=== PATIENT | female | born 1995 | race Asian ===

== ENCOUNTER 2017-01-31 08:08 | Emergency (ER) | payer BC, OTHER ==
[~2017-01-31] VITALS: Ht 162.6 cm; Wt 54.4 kg
[2017-01-31 08:18] VITALS: BP 118/74
[2017-01-31 09:13] LABS: UA SPECIFIC GRAVITY <=1.005 (1.005-1.035); microscopic required? YES; urine erythrocyte 3+ (NEGATIVE)
== END 2017-01-31 09:14 | disposition home or self-care (01) ==
LOC: ED 08:08
PROVIDERS: Emergency Medicine
DX: N39.0 Urinary tract infection, site not specified (principal)

== ENCOUNTER 2017-02-09 05:50 | Emergency (ER) | payer BC, OTHER ==
[2017-02-09 07:25] LABS: UA SPECIFIC GRAVITY <=1.005 (1.005-1.035); microscopic required? YES; urine erythrocyte 3+ (NEGATIVE)
[2017-02-09 07:35] VITALS: BP 109/76
== END 2017-02-09 07:35 | disposition home or self-care (01) ==
LOC: ED 05:50
PROVIDERS: Emergency Medicine
DX: N39.0 Urinary tract infection, site not specified (principal)
CPT/HCPCS: J0696

== ENCOUNTER 2018-08-22 17:24 | Emergency (ER) | payer OTHER ==
[~2018-08-22] VITALS: Ht 162.6 cm; Wt 53.1 kg
[2018-08-22 17:50] VITALS: Ht 162.6 cm; Wt 53.1 kg
[2018-08-22 19:42] VITALS: BP 108/56
== END 2018-08-22 19:42 | disposition home or self-care (01) ==
LOC: ED 17:24
DX: T39.1X5A Adverse effect of 4-Aminophenol derivatives, initial encounter (principal); J45.909 Unspecified asthma, uncomplicated; Y92.89 Other specified places as the place of occurrence of the external cause
CPT/HCPCS: J1885; Q0162

== ENCOUNTER 2018-08-24 20:23 | Emergency (ER) | payer OTHER ==
[~2018-08-24] VITALS: Ht 162.6 cm; Wt 54.0 kg
[2018-08-24 20:35] VITALS: Ht 162.6 cm; Wt 54.0 kg
[2018-08-24 21:22] VITALS: BP 134/96
== END 2018-08-24 21:22 | disposition home or self-care (01) ==
LOC: ED 20:23
DX: K05.30 Chronic periodontitis, unspecified (principal); J45.909 Unspecified asthma, uncomplicated
CPT/HCPCS: J1885; J2930; J3490

== ENCOUNTER 2018-12-21 07:04 | Emergency (ER) | payer OTHER ==
[~2018-12-21] VITALS: Ht 162.6 cm; Wt 55.5 kg
[2018-12-21 07:13] VITALS: Ht 162.6 cm; Wt 55.5 kg
[2018-12-21 07:54] VITALS: BP 116/78
== END 2018-12-21 07:54 | disposition home or self-care (01) ==
LOC: ED 07:04
DX: N30.00 Acute cystitis without hematuria (principal); J45.909 Unspecified asthma, uncomplicated
CPT/HCPCS: 87491; 87591

== ENCOUNTER 2019-01-24 03:38 | Inpatient (IN) | payer OTHER ==
[~2019-01-24] VITALS: Ht 162.6 cm; Wt 58.2 kg
[2019-01-24 03:42] VITALS: Ht 162.6 cm; Wt 58.2 kg
[2019-01-24 04:22] LABS: BASOPHIL % 0.3 % (0-2); PLATELET COUNT 239 x10^3mcL (130-400)
[2019-01-24 04:30] LABS: CALCIUM 8.8 mg/dL (8.5-10.1); CARBON DIOXIDE 27.9 mmol/L (21-32); CHLORIDE SERUM 104 mmol/L (98-107); CREATININE SERUM 0.8 mg/dL (0.6-1.0); GFR1 > 60 mL/min; GLUCOSE SERUM 97 mg/dL (74-106); POTASSIUM SERUM 3.8 mmol/L (3.5-5.1); SODIUM SERUM 140 mmol/L (136-145)
[2019-01-24 04:35] LABS: ALBUMIN 3.9 g/dL (3.4-5.0); ALKALINE PHOSPHATASE 43 U/L (46-116); ALT/SGPT 72 U/L (14-59); AST/SGOT 37 U/L (15-37); BILIRUBIN TOTAL 0.4 mg/dL (0.20-1.00); LIPASE 156 IU/L (73-393); TOTAL PROTEIN, SERUM 7.7 g/dL (6.4-8.2)
[2019-01-24 04:58] LABS: microscopic required? YES; urine erythrocyte 3+ (NEGATIVE)
[2019-01-24 09:51] VITALS: BP 93/41
== END 2019-01-24 19:15 | disposition left against medical advice (07) | DRG 390 ==
LOC: ED 03:38 → MU 08:15
PROVIDERS: Emergency Medicine; ADMIT General Practice
DX: K56.41 Fecal impaction (principal); Z53.21 Procedure and treatment not carried out due to patient leaving prior to being seen by health care provider; J45.909 Unspecified asthma, uncomplicated
CPT/HCPCS: J1885; J2270; J2405; J2543; J3010; J3490; J7030; Q0092; Q9967

== ENCOUNTER 2019-03-19 20:04 | Emergency (ER) | payer OTHER ==
[~2019-03-19] VITALS: Ht 162.6 cm; Wt 55.3 kg
[2019-03-19 20:06] VITALS: Ht 162.6 cm; Wt 55.3 kg
[2019-03-19 22:10] VITALS: BP 111/56
== END 2019-03-19 22:30 | disposition home or self-care (01) ==
LOC: ED 20:04
DX: T78.40XA Allergy, unspecified, initial encounter (principal); T78.2XXA Anaphylactic shock, unspecified, initial encounter; X58.XXXA Exposure to other specified factors, initial encounter
CPT/HCPCS: J1100; Q0163

== ENCOUNTER 2019-05-14 14:15 | Emergency (ER) | payer OTHER ==
[~2019-05-14] VITALS: Ht 162.6 cm; Wt 55.8 kg
[2019-05-14 14:31] VITALS: BP 119/56; Ht 162.6 cm; Wt 55.8 kg
== END 2019-05-14 18:17 | disposition home or self-care (01) ==
LOC: ED 14:15
DX: S60.221A Contusion of right hand, initial encounter (principal); X50.0XXA Overexertion from strenuous movement or load, initial encounter; Y93.89 Activity, other specified; Y92.89 Other specified places as the place of occurrence of the external cause; Y99.8 Other external cause status; R50.9 Fever, unspecified

== ENCOUNTER 2019-09-03 12:33 | Emergency (ER) | payer OTHER ==
[~2019-09-03] VITALS: Ht 162.6 cm; Wt 54.9 kg
[2019-09-03 12:35] VITALS: Ht 162.6 cm; Wt 54.9 kg
[2019-09-03 13:19] VITALS: BP 113/67
== END 2019-09-03 13:19 | disposition home or self-care (01) ==
LOC: ED 12:33
DX: K12.1 Other forms of stomatitis (principal)

== ENCOUNTER 2019-09-22 13:28 | Emergency (ER) | payer OTHER ==
[~2019-09-22] VITALS: Ht 162.6 cm; Wt 54.4 kg
[2019-09-22 13:47] VITALS: Ht 162.6 cm; Wt 54.4 kg
[2019-09-22 15:50] VITALS: BP 120/78
== END 2019-09-22 15:50 | disposition home or self-care (01) ==
LOC: ED 13:28
DX: B37.3 Candidiasis of vulva and vagina (principal); J45.909 Unspecified asthma, uncomplicated

== ENCOUNTER 2019-10-25 08:57 | Emergency (ER) | payer OTHER ==
[~2019-10-25] VITALS: Ht 162.6 cm; Wt 54.9 kg
[2019-10-25 09:17] VITALS: Ht 162.6 cm; Wt 54.9 kg
[2019-10-25 12:18] VITALS: BP 102/60
== END 2019-10-25 12:00 | disposition home or self-care (01) ==
LOC: ED 08:57
DX: N30.90 Cystitis, unspecified without hematuria (principal); J45.909 Unspecified asthma, uncomplicated
CPT/HCPCS: 82962; 87491; 87591

== ENCOUNTER 2019-10-25 14:35 | Emergency (ER) | payer OTHER ==
[~2019-10-25] VITALS: Ht 157.5 cm; Wt 54.4 kg
[2019-10-25 15:17] VITALS: Ht 157.5 cm; Wt 54.4 kg
[2019-10-25 16:39] VITALS: BP 139/68
== END 2019-10-25 16:39 | disposition home or self-care (01) ==
LOC: ED 14:35
DX: L25.8 Unspecified contact dermatitis due to other agents (principal); T36.8X5A Adverse effect of other systemic antibiotics, initial encounter; N30.90 Cystitis, unspecified without hematuria; J45.909 Unspecified asthma, uncomplicated; Y92.89 Other specified places as the place of occurrence of the external cause
CPT/HCPCS: J7512; Q0163

== ENCOUNTER 2019-10-28 04:08 | Emergency (ER) | payer OTHER ==
[~2019-10-28] VITALS: Ht 162.6 cm; Wt 54.0 kg
[2019-10-28 04:18] VITALS: Ht 162.6 cm; Wt 54.0 kg
[2019-10-28 07:27] VITALS: BP 103/68
== END 2019-10-28 07:27 | disposition home or self-care (01) ==
LOC: ED 04:08
DX: G44.209 Tension-type headache, unspecified, not intractable (principal); J45.909 Unspecified asthma, uncomplicated; Z88.1 Allergy status to other antibiotic agents
CPT/HCPCS: J1885

== ENCOUNTER 2020-02-10 06:24 | Day surgery (SDC) | payer OTHER ==
[2020-02-07 09:32] LABS: PLATELET COUNT 220 x10^3mcL (130-400); RED CELL DISTRIBUTION WIDTH 14.5 % (11.5-14.5)
[2020-02-07 09:45] LABS: ALBUMIN 4.4 g/dL (3.4-5.0); ALKALINE PHOSPHATASE 38 U/L (46-116); ALT/SGPT 23 U/L (14-59); AST/SGOT 20 U/L (15-37); BILIRUBIN TOTAL 0.7 mg/dL (0.20-1.00); CALCIUM 8.8 mg/dL (8.5-10.1); CARBON DIOXIDE 26.8 mmol/L (21-32); CHLORIDE SERUM 101 mmol/L (98-107); CREATININE SERUM 0.8 mg/dL (0.6-1.0); GFR1 > 60 mL/min; GLUCOSE SERUM 80 mg/dL (74-106); SODIUM SERUM 137 mmol/L (136-145); TOTAL PROTEIN, SERUM 8.1 g/dL (6.4-8.2)
[~2020-02-10] VITALS: Ht 160 cm; Wt 53.5 kg
[2020-02-10 06:59] VITALS: BP 113/64
[2020-02-10 15:13] VITALS: BP 112/62
== END 2020-02-10 16:00 | disposition home or self-care (01) ==
LOC: DS 06:24 → OR 07:30 → DS 16:00
PROVIDERS: ATTEND Obstetrics & Gynecology
DX: N84.0 Polyp of corpus uteri (principal); N80.1 Endometriosis of ovary; N80.3 Endometriosis of pelvic peritoneum; J45.909 Unspecified asthma, uncomplicated; Z11.59 Encounter for screening for other viral diseases
CPT/HCPCS: C1758; J0330; J2175; J2250; J2405; J2704; J2710; J3010; J3490; U0003-CS